=== PATIENT | female | born 1945 | race Caucasian/White ===

== ENCOUNTER 2024-09-17 08:11 | Outpatient (RCR) | payer MEDICARE, SELFPAY | END 2024-09-17 23:59 | disposition home or self-care (01) | LOC: RPT 08:11 | PROVIDERS: ATTENDING PHYSICIAN Nurse Practitioner | DX: R39.15 Urgency of urination (principal); Z73.6 Limitation of activities due to disability | CPT/HCPCS: 97110; 97161; 97530 ==

== ENCOUNTER 2024-10-03 15:29 | Outpatient (RCR) | payer MEDICARE, SELFPAY | END 2024-10-03 23:59 | disposition home or self-care (01) | LOC: RPT 15:29 | PROVIDERS: ATTENDING PHYSICIAN Nurse Practitioner | DX: R39.15 Urgency of urination (principal); Z73.6 Limitation of activities due to disability | CPT/HCPCS: 97110 ==